=== PATIENT | male | born 1960 | race Caucasian/White ===

== ENCOUNTER 2019-01-21 20:00 | Emergency (ER) | payer OTHER ==
[2019-01-21 20:31] VITALS: BP 154/103; PULSE 82; TEMP 98.1; BMI 34.0
--- NOTE | 2019-01-21 20:42 | PDOC ---
History of Present Illness - General Chief Complaint: Pain Stated Complaint: ABDOMINAL PAIN Time Seen by Provider: 01/21/19 20:30 History Source: Patient Exam Limitations: No Limitations - History of Present Illness Initial Comments: 01/21/19 20:42 Assessment and plan: This is a 58-year-old male with hypertension who comes in complaining of upper abdominal pain and spasm. Patient said they the pain was relatively brief but very intense. Patient has been pain-free 24 hours now. There was some associated sweating with the pain but no chest pain or shortness of breath or nausea. Patient had sweat profusely the afternoon prior to onset of the pain. Patient's description of the pain is typical of a muscle spasm as there was also some fasciculating of the muscle during the spasm. Patient has been pain-free. Patient reassured that the pain was most likely secondary to low sodium or electrolyte abnormality after his profusely sweating. Since patient has now rehydrated and he has had no further discomfort I did not feel the need to further investigate or evaluate the cause of the pain. Patient discharged will follow-up with his primary care doctor Past History - Past Medical History Allergies/Adverse Reactions: Allergies Allergy/AdvReac Type Severity Reaction Status Date / Time bacitracin Allergy Verified 04/09/12 10:08 [From Neosporin ([id number])] bacitracin zinc Allergy Verified 04/09/12 10:08 [From Neosporin ([id number]-[id number])] neomycin sulfate Allergy Verified 04/09/12 10:08 [From Neosporin ([id number]-[id number])] polymyxin B Allergy Verified 04/09/12 10:08 [From Neosporin ([id number])] Home Medications: Ambulatory Orders Lisinopril/Hydrochlorothiazide [Lisinopril-Hctz 20-25 mg Tab] 1 each PO DAILY Metoprolol Succinate 25 mg PO DAILY 01/21/19 Anemia: No Asthma: No Cancer: No Cardiac Disorders: No CVA: No COPD: No CHF: No Dementia: No Diabetes: No Dialysis: No GI Disorders: Yes (HEMORRHOIDS, ANAL FISSURE, UMBILICAL HERNIA) Disorders: No HTN: Yes Hypercholesterolemia: No Liver Disease: No Seizures: No Thyroid Disease: No - Suicide/Smoking/Psychosocial Hx Smoking Status: Yes Smoking History: Current every day smoker Have you smoked in the past 12 months: Yes Number of Cigarettes Smoked Daily: 20 Information on smoking cessation initiated: Yes 'Breaking Loose' booklet given: 10/07/16 Hx Alcohol Use: No Drug/Substance Use Hx: No Substance Use Type: None *Physical Exam - Vital Signs Last Vital Signs Temp Pulse Resp BP Pulse Ox 98.1 F 82 18 154/103 H 98 01/21/19 20:00 01/21/19 20:00 01/21/19 20:00 01/21/19 20:00 01/21/19 20:00 *DC/Admit/Observation/Transfer Diagnosis at time of Disposition: Resolved abdominal pain - Discharge Dispostion Disposition: HOME Condition at time of disposition: Stable Decision to Admit order: No - Referrals Referrals: Rachid Hoffman MD, MD [Primary Care Provider] - - Patient Instructions Additional Instructions: Return to the emergency department immediately with ANY new, persistent or worsening symptoms. Continue any medications as previously prescribed by your physician. You should follow up with your primary doctor as soon as possible regarding today's emergency department visit. . Please make sure your doctor reviews the results of your emergency evaluation. Thank you for coming to the Emergency Department today for your care. It was a pleasure to see you today. Please note that your evaluation is INCOMPLETE until you follow-up with your doctor. - Post Discharge Activity
--- NOTE | 2019-01-21 20:49 | PDOC ---
Documentation entered by Micaela Price SCRIBE, acting as scribe for Vasquez Hooper MD. Vasquez Hooper MD: This documentation has been prepared by the Dee ambrosio Xhesika, SCRIBE, under my direction and personally reviewed by me in its entirety. I confirm that the documentation accurately reflects all work, treatment, procedures, and medical decision making performed by me. History of Present Illness - General Chief Complaint: Pain Stated Complaint: ABDOMINAL PAIN Time Seen by Provider: 01/21/19 20:30 History Source: Patient Exam Limitations: No Limitations - History of Present Illness Initial Comments: 01/21/19 20:46 The patient is a 58 year old male, with a significant past medical history of hypertension and high cholesterol who presents to the emergency department with RUQ pain. The patient describes the pain as 9/10, severe, fluttering sensation on his RUQ, that self resolved after a few minutes. The patient states he saw his PCP this morning and was told his RUQ was swollen and he should come to the ED for a CT scan. The patient states he was sweating and had the chills on thursday, which eventually self resolved. The patient notes he has been dieting the past 4 days, hardly eating and drinking 14 bottles of water a day. The patient denies any pain or complaints now. The patient denies chest pain, shortness of breath, headache or dizziness. The patient denies fever, chills, nausea, vomiting, diarrhea or constipation. The patient denies dysuria, frequency, urgency or hematuria. PAST MEDICAL HISTORY: hypertension and high cholesterol PAST SURGICAL HISTORY: no significant history FAMILY HISTORY: no pertinent history SOCIAL HISTORY: Pt lives with family and is employed. MEDICATIONS: reviewed ALLERGIES: As per nursing notes 01/21/19 20:42 Assessment and plan: This is a 58-year-old male with hypertension who comes in complaining of upper abdominal pain and spasm. Patient said they the pain was relatively brief but very intense. Patient has been pain-free 24 hours now. There was some associated sweating with the pain but no chest pain or shortness of breath or nausea. Patient had sweat profusely the afternoon prior to onset of the pain. Patient's description of the pain is typical of a muscle spasm as there was also some fasciculating of the muscle during the spasm. Patient has been pain-free. Patient reassured that the pain was most likely secondary to low sodium or electrolyte abnormality after his profusely sweating. Since patient has now rehydrated and he has had no further discomfort I did not feel the need to further investigate or evaluate the cause of the pain. Patient discharged will follow-up with his primary care doctor Past History - Past Medical History Allergies/Adverse Reactions: Allergies Allergy/AdvReac Type Severity Reaction Status Date / Time bacitracin Allergy Verified 04/09/12 10:08 [From Neosporin ([id number])] bacitracin zinc Allergy Verified 04/09/12 10:08 [From Neosporin ([id number]-[id number])] neomycin sulfate Allergy Verified 04/09/12 10:08 [From Neosporin (rzm-eki-puohf)] polymyxin B Allergy Verified 04/09/12 10:08 [From Neosporin ([id number]-[id number])] Home Medications: Ambulatory Orders Lisinopril/Hydrochlorothiazide [Lisinopril-Hctz 20-25 mg Tab] 1 each PO DAILY Metoprolol Succinate 25 mg PO DAILY 01/21/19 Anemia: No Asthma: No Cancer: No Cardiac Disorders: No CVA: No COPD: No CHF: No Dementia: No Diabetes: No Dialysis: No GI Disorders: Yes (HEMORRHOIDS, ANAL FISSURE, UMBILICAL HERNIA) Disorders: No HTN: Yes Hypercholesterolemia: No Liver Disease: No Seizures: No Thyroid Disease: No - Suicide/Smoking/Psychosocial Hx Smoking Status: Yes Smoking History: Current every day smoker Have you smoked in the past 12 months: Yes Number of Cigarettes Smoked Daily: 20 Information on smoking cessation initiated: Yes 'Breaking Loose' booklet given: 10/07/16 Hx Alcohol Use: No Drug/Substance Use Hx: No Substance Use Type: None Review of Systems - Review of Systems Able to Perform ROS?: Yes Comments:: 01/21/19 20:47 General: No fevers or chills, no weakness, no weight loss HEENT: No change in vision. No sore throat,. No ear pain CardioVascular: No chest pain or shortness of breath Respiratory:No cough, or wheezing. Gastrointestinal: no nausea, vomiting, diarrhea or constipation, No rectal bleeding Genitourinary: No dysuria, hematuria, or frequency Musculoskeletal: (+) RUQ pain. No joint or muscle swelling Neurologic: No headache, vertigo, dizziness or loss of consciousness Psychiatric: nor depression Skin: No rashes or easy bruising Endocrine: no increased thirst or abnormal weight change Allergic: no skin or latex allergy All other systems reviewed and normal *Physical Exam - Vital Signs Last Vital Signs Temp Pulse Resp BP Pulse Ox 98.1 F 82 18 154/103 H 98 01/21/19 20:00 01/21/19 20:00 01/21/19 20:00 01/21/19 20:00 01/21/19 20:00 - Physical Exam Comments: 01/21/19 20:47 GENERAL: The patient is awake, alert, and fully oriented, in no acute distress. HEAD: Normal with no signs of trauma. EYES: Pupils equal, round and reactive to light, extraocular movements intact, sclera anicteric, conjunctiva clear. EXTREMITIES: Normal range of motion, no edema. NEUROLOGICAL: Normal speech, normal gait. PSYCH: Normal mood, normal affect. SKIN: Warm, Dry, normal turgor, no rashes or lesions noted. *DC/Admit/Observation/Transfer Diagnosis at time of Disposition: Resolved abdominal pain - Discharge Dispostion Disposition: HOME Condition at time of disposition: Stable - Referrals Referrals: Rachid Hoffman MD, MD [Primary Care Provider] - - Patient Instructions Additional Instructions: Return to the emergency department immediately with ANY new, persistent or worsening symptoms. Continue any medications as previously prescribed by your physician. You should follow up with your primary doctor as soon as possible regarding today's emergency department visit. . Please make sure your doctor reviews the results of your emergency evaluation. Thank you for coming to the Emergency Department today for your care. It was a pleasure to see you today. Please note that your evaluation is INCOMPLETE until you follow-up with your doctor. - Post Discharge Activity
== END 2019-01-21 20:50 | disposition home or self-care (01) ==
LOC: FER 20:00
DX: R10.9 Unspecified abdominal pain (principal); F17.210 Nicotine dependence, cigarettes, uncomplicated; I10 Essential (primary) hypertension
CPT/HCPCS: 99282-25

== ENCOUNTER 2021-03-18 11:54 | Emergency (ER) | payer OTHER ==
[2021-03-18 12:09] VITALS: BP 158/87; PULSE 72; TEMP 98.2; BMI 34.0
[2021-03-18] MEDS ORDERED: DIPHTH,PERTUSS(ACELL),TET 0.5 ML DISP.SYRIN IM ONE ×2 (12:30→12:32)
== END 2021-03-18 12:45 | disposition home or self-care (01) ==
LOC: FER 11:54
PROC: 3E0234Z Introduction of Serum, Toxoid and Vaccine into Muscle, Percutaneous Approach (ICD-10-PCS; principal; 2021-03-18)
DX: S09.92XA Unspecified injury of nose, initial encounter (principal)
CPT/HCPCS: 90471; 90715; 99283-25

== ENCOUNTER 2023-07-02 14:46 | Emergency (ER) | payer OTHER ==
[2023-07-02 16:00] VITALS: BP 151/113; PULSE 91; RESP 16; TEMP 98.8; BMI 35.1
== END 2023-07-02 16:45 | disposition home or self-care (01) ==
LOC: FER 14:46
DX: R21 Rash and other nonspecific skin eruption (principal); L29.9 Pruritus, unspecified; K62.89 Other specified diseases of anus and rectum
CPT/HCPCS: 99283-25

== ENCOUNTER 2024-03-13 00:28 | Emergency (ER) | payer OTHER ==
[2024-03-13 00:43] VITALS: BP 149/106; PULSE 76; RESP 20; TEMP 98.1; BMI 35.2
[2024-03-13] MEDS ORDERED: diphenhydrAMINE HCL 25 MG CAPSULE (FP) PO ONE (00:56)
[2024-03-13] MEDS ORDERED: CEPHALEXIN MONOHYDRATE 500 MG CAPSULE (UD) ONE (00:57)
[2024-03-13] MEDS ORDERED: DEXAMETHASONE SOD PHOSPHATE 4 MG/1 ML VIAL ONE (00:57)
[2024-03-13] MEDS: CEPHALEXIN MONOHYDRATE 500 MG CAPSULE (UD) PO ONE (01:02)
[2024-03-13] MEDS: DEXAMETHASONE SOD PHOSPHATE 4 MG/1 ML VIAL IM ONE (01:02)
[2024-03-13] MEDS: diphenhydrAMINE HCL 50 MG CAPSULE PO ONE (01:04)
== END 2024-03-13 01:13 | disposition home or self-care (01) ==
LOC: FER 00:28
PROC: 3E023GC Introduction of Other Therapeutic Substance into Muscle, Percutaneous Approach (ICD-10-PCS; principal; 2024-03-13)
DX: S00.06XA Insect bite (nonvenomous) of scalp, initial encounter (principal); T78.40XA Allergy, unspecified, initial encounter; R22.0 Localized swelling, mass and lump, head; W57.XXXA Bitten or stung by nonvenomous insect and other nonvenomous arthropods, initial encounter
CPT/HCPCS: 99284-25